=== PATIENT | female | born 1945 | race Caucasian/White ===

== ENCOUNTER → 2018-06-14 | Outpatient (CLI) | payer MEDICARE | END | disposition home or self-care (01) | LOC: SHCH 11:33 | PROVIDERS: ATTEND Internal Medicine Cardiovascular Disease | DX: I25.10 Atherosclerotic heart disease of native coronary artery without angina pectoris (principal); E11.9 Type 2 diabetes mellitus without complications; I10 Essential (primary) hypertension | CPT/HCPCS: 93306 ==

== ENCOUNTER → 2021-02-01 | Outpatient (CLI) | payer MEDICARE | END | disposition home or self-care (01) | LOC: SHCH 15:09 | PROVIDERS: ATTEND Internal Medicine Cardiovascular Disease | DX: I65.23 Occlusion and stenosis of bilateral carotid arteries (principal); R09.89 Other specified symptoms and signs involving the circulatory and respiratory systems | CPT/HCPCS: 93880 ==

== ENCOUNTER 2022-03-21 11:05 | Emergency (ER) | payer MEDICARE ==
[~2022-03-21] VITALS: Ht 167.6 cm; Wt 90.7 kg
[~2022-03-21 11:05] MED LIST: ACET-2079 PO; ASPI-1197 PO; CELE100C97 PO; CHLO25TA3 PO; DULA1.5P SQ; FISH1CAP20 PO; GABA300C PO; LEVO75CA5 PO; LISI20TA24 PO; METF-444 PO; METO50TA18 PO; NIFE30TA98 PO; ROSU20TA31 PO
[2022-03-21] MEDS ORDERED: KETOROLAC 60 MG VIAL (30MG/ML) IM ONE (11:30)
[2022-03-21] MEDS ORDERED: HYDROCODONE/ACETAMINOPHEN 5/325 MG TAB PO ONE (11:30)
[2022-03-21] MEDS ORDERED: TRAM1TAB2 PO (12:29)
[2022-03-21 13:37] VITALS: BP 132/78
== END 2022-03-21 13:27 | disposition home or self-care (01) ==
LOC: EDH 11:05
DX: S82.831A Other fracture of upper and lower end of right fibula, initial encounter for closed fracture (principal); E11.9 Type 2 diabetes mellitus without complications; E78.00 Pure hypercholesterolemia, unspecified; I10 Essential (primary) hypertension; E03.9 Hypothyroidism, unspecified; Z79.899 Other long term (current) drug therapy; W18.39XA Other fall on same level, initial encounter; Y93.89 Activity, other specified; Y92.89 Other specified places as the place of occurrence of the external cause; Y99.8 Other external cause status
CPT/HCPCS: 29515; 73610; 96372; 99283; J1885